=== PATIENT | male | born 1940 | race Caucasian/White ===

== ENCOUNTER → 2021-04-20 | Outpatient (CLI) | payer MEDICARE | END | disposition home or self-care (01) | LOC: SLP 20:14 | PROVIDERS: ATTEND Internal Medicine | DX: G47.33 Obstructive sleep apnea (adult) (pediatric) (principal) | CPT/HCPCS: 95810 ==

== ENCOUNTER → 2021-04-23 | Outpatient (CLI) | payer MEDICARE | END | disposition home or self-care (01) | LOC: SLP 10:00 | PROVIDERS: ATTEND Internal Medicine | DX: G47.33 Obstructive sleep apnea (adult) (pediatric) (principal) | CPT/HCPCS: 95811 ==

== ENCOUNTER 2021-05-30 05:39 | Day surgery (SDC) | payer MEDICARE ==
[2021-05-27 11:45] LABS: BASOPHILS % (AUTO) 0.2 % (0.0-5.0); EOSINOPHILS % (AUTO) 0.2 % (0.0-8.0); HEMATOCRIT 38.2 % (42-54); LYMPHOCYTES % (AUTO) 31.8 % (21.0-51.0); MEAN CORPUSCULAR HEMOGLOBIN 32.5 pg (27.0-33.0); MEAN CORPUSCULAR HGB CONC 32.2 g/dL (32.0-36.0); MEAN CORPUSCULAR VOLUME 100.8 fL (79-99); MONOCYTES % (AUTO) 5.6 % (3.0-13.0); PLATELET COUNT (AUTO) 122 K/uL (130-400); RED BLOOD CELL COUNT(AUTO) 3.79 MIL/uL (4.50-6.20); RED CELL DISTRIBUTION WIDTH 13.4 % (11.0-15.5); WHITE BLOOD COUNT (AUTO) 5.3 K/uL (4.8-10.8)
[2021-05-27 12:01] LABS: CREATININE 1.1 mg/dL (0.5-1.5); POTASSIUM 4.6 mmol/L (3.5-5.1)
[2021-05-27 12:21] LABS: INR 1.42 (0.85-1.15)
[2021-05-27 12:22] LABS: PARTIAL THROMBOPLASTIN TIME 26.9 SEC (26.3-35.5)
[2021-05-27 12:26] LABS: APPEARANCE,URINE CLEAR (CLEAR); BILIRUBIN,URINE NEGATIVE (NEGATIVE); COLOR,URINE YELLOW (YELLOW); GLUCOSE, URINE (UA) NEGATIVE (NEGATIVE); KETONES,URINE NEGATIVE (NEGATIVE); LEUKOCYTE ESTERASE ,URINE NEGATIVE (NEGATIVE); NITRATE,URINE NEGATIVE (NEGATIVE); OCCULT BLOOD,URINE NEGATIVE (NEGATIVE); PH,URINE 5.5 (5.0-8.0); PROTEIN,URINE NEGATIVE (NEGATIVE); UROBILINOGEN,URINE 0.2 mg/dL (0.2-1.0)
[2021-05-29 11:55] VITALS: BP 146/78
[~2021-05-30] VITALS: Ht 172.7 cm; Wt 125.3 kg
[2021-05-30] VITALS (12 sets, daily range): BP systolic 108–151; BP diastolic 45–89
[~2021-05-30 05:39] MED LIST: CARV6.25 PO; CYAN-35 PO; FURO20TA4 PO; HYDR12.54 PO; RAMI2.5C55 PO; SIMV80TA91 PO; TAMS-1 PO; VITAMIN D PO; WARF-57 PO
[2021-05-30] MEDS ORDERED: 0.9%NACL 1000ML 1,000 ML IV ONE (06:14)
[2021-05-30] MEDS ORDERED: IOHEXOL-350 50ML VIAL IV ONE (07:11)
[2021-05-30] MEDS ORDERED: HEPARIN 10,000 UNIT/10ML (1,000 UNIT/ML) VIAL ONE ×2 (07:11→08:55)
[2021-05-30] MEDS ORDERED: NITROGLYCERIN 50MG VIAL ONE (07:11)
[2021-05-30] MEDS ORDERED: SODIUM BICARB 50MEQ 50ML VIAL 50 ML ONE (07:11)
[2021-05-30] MEDS ORDERED: IOHEXOL 350 MG/ML 100ML INFUS..BTL IV ONE (07:11)
[2021-05-30] MEDS ORDERED: LIDOCAINE HCL 400MG/20ML VIAL ONE (07:12)
[2021-05-30] MEDS ORDERED: FENTANYL CITRATE PF 50 MCG/1 ML 2ML VIAL ONE (07:12)
[2021-05-30] MEDS ORDERED: MIDAZOLAM HCL 1 MG/ML 2ML VIAL ONE (07:12)
[2021-05-30] MEDS ORDERED: IODIXANOL 320 MG/ML 100 ML VIAL ONE (08:55)
[2021-05-30] MEDS ORDERED: ATROPINE 1MG SYG IVP ONE (09:23)
[2021-05-30] MEDS ORDERED: 0.9%NACL 1000ML 1,000 ML IV SCH (09:30)
[2021-05-30] MEDS ORDERED: NOREPINEPHRINE BITARTRATE 1 MG/1 ML ML IV ONE (09:42)
== END 2021-05-30 15:10 | disposition home or self-care (01) ==
LOC: DAH 05:39
PROVIDERS: ATTEND Internal Medicine Cardiovascular Disease
DX: I35.0 Nonrheumatic aortic (valve) stenosis (principal); I25.10 Atherosclerotic heart disease of native coronary artery without angina pectoris; I11.0 Hypertensive heart disease with heart failure; I44.7 Left bundle-branch block, unspecified; I50.42 Chronic combined systolic (congestive) and diastolic (congestive) heart failure; I48.21 Permanent atrial fibrillation; D68.59 Other primary thrombophilia; G47.30 Sleep apnea, unspecified; E78.5 Hyperlipidemia, unspecified; Z90.49 Acquired absence of other specified parts of digestive tract; Z98.890 Other specified postprocedural states; Z79.899 Other long term (current) drug therapy; Z79.01 Long term (current) use of anticoagulants
CPT/HCPCS: 36415; 80048; 81003; 85025; 85610; 85730; 93005; 93460; A4215; A4216; A4221; A4222; A4223 ×3; A4606; A4663; C1760; C1769 ×2; C1894 ×4; J1644; J2250; J3010; J3490 ×3; J7030; Q9967 ×3; 96360; 96361; 99156; 99157; J0461

== ENCOUNTER → 2022-04-09 | Outpatient (CLI) | payer MEDICARE ==
[2022-04-09 13:53] LABS: ALBUMIN 3.2 g/dL (3.5-5.0); CREATININE 1.2 mg/dL (0.5-1.5); MAGNESIUM 1.9 mg/dL (1.80-2.40); POTASSIUM 4.5 mmol/L (3.5-5.1)
== END | disposition home or self-care (01) ==
LOC: LAB 08:46
PROVIDERS: ATTEND Internal Medicine Cardiovascular Disease
DX: I35.0 Nonrheumatic aortic (valve) stenosis (principal); I48.20 Chronic atrial fibrillation, unspecified; D68.59 Other primary thrombophilia; E78.5 Hyperlipidemia, unspecified; I10 Essential (primary) hypertension; Z79.899 Other long term (current) drug therapy
CPT/HCPCS: 36415; 80053; 80061; 83735; 83880